=== PATIENT | male | born 1935 | race Caucasian/White ===

== ENCOUNTER 2020-08-27 15:31 | Inpatient (IN) | payer OTHER ==
[~2020-08-27] VITALS: Ht 154.9 cm; Wt 62.6 kg
[~2020-08-27 15:31] MED LIST: ENALAPRIL MALEAT5 MG
[2020-08-29] MEDS ORDERED: GABAPENTIN600 MG (08:05)
[2020-08-29] MEDS ORDERED: TAMSULOSIN HCL0.4 MG (08:05)
== END 2020-09-16 10:21 | disposition expired | DRG 813 ==
LOC: ER 15:31 → EDSEX 15:50 → SEC-K 08-28 11:16 → MEDI 08-28 11:16
PROVIDERS: ADMIT Internal Medicine Cardiovascular Disease; ATTEND Internal Medicine Cardiovascular Disease
PROC: BW21ZZZ Computerized Tomography (CT Scan) of Abdomen and Pelvis (ICD-10-PCS; principal; 2020-08-28)
PROC: 4A12X4Z Monitoring of Cardiac Electrical Activity, External Approach (ICD-10-PCS; 2020-08-30)
PROC: 5A09557 Assistance with Respiratory Ventilation, Greater than 96 Consecutive Hours, Continuous Positive Airway Pressure (ICD-10-PCS; 2020-08-31)
PROC: 3E0F7SF Introduction of Other Gas into Respiratory Tract, Via Natural or Artificial Opening (ICD-10-PCS; 2020-09-03)
PROC: 0W993ZX Drainage of Right Pleural Cavity, Percutaneous Approach, Diagnostic (ICD-10-PCS; 2020-09-05)
PROC: 30233N1 Transfusion of Nonautologous Red Blood Cells into Peripheral Vein, Percutaneous Approach (ICD-10-PCS; 2020-09-07)
DX: D65 Disseminated intravascular coagulation [defibrination syndrome] (principal); K62.5 Hemorrhage of anus and rectum; I48.20 Chronic atrial fibrillation, unspecified; N17.8 Other acute kidney failure; G93.49 Other encephalopathy; J98.11 Atelectasis; J90 Pleural effusion, not elsewhere classified; I13.0 Hypertensive heart and chronic kidney disease with heart failure and stage 1 through stage 4 chronic kidney disease, or unspecified chronic kidney disease; Z79.01 Long term (current) use of anticoagulants; R09.02 Hypoxemia; D64.9 Anemia, unspecified; I50.9 Heart failure, unspecified; Z66 Do not resuscitate; N18.9 Chronic kidney disease, unspecified; Z20.828 Contact with and (suspected) exposure to other viral communicable diseases